=== PATIENT | female | born 1995 | race Caucasian/White ===

== ENCOUNTER 2018-11-07 05:38 | Emergency (ER) | payer SELFPAY ==
[~2018-11-07] VITALS: Ht 160 cm; Wt 57.2 kg
--- NOTE | 2018-11-07 05:51 | PHYS DOC ---
Adult General Chief Complaint Chief Complaint: ANXIETY/PANIC ATTACK HPI HPI Patient is a 23 year old female who presents with acute anxiety/panic attack. Patient's significant other states patient. Be breathing fast, panic, with loud breathing noises and tearfulness morning which caused him to awake. Patient arrives by private vehicle brought immediately to a treatment area. Patient on exam is hyperventilating with clear breath sounds and no restriction of air movement bilaterally. Nose stridor or airway swelling patient placed on monitor and noted to O2 saturation 97% on room air. History is limited as the patient is acutely [] Review of Systems Review of Systems View symptoms as per history of present illness. Limited due to the nature patient's presentation. All other systems were reviewed and found to be within normal limits, except as documented in this note. Current Medications Current Medications Current Medications Medications (Trade) Dose Ordered Sig/Geoffrey Start Time Stop Time Status Last Admin Dose Admin Lorazepam (Ativan) 1 mg 1X ONCE 11/07/18 05:45 11/07/18 05:46 UNV Physical Exam Physical Exam Constitutional: Anxious, tearful, hyperventilating.[] HENT: Normocephalic, atraumatic, bilateral external ears normal, nose normal. [] Eyes: PERRLA, EOMI, conjunctiva normal, no discharge. [] Neck: Normal range of motion, no tenderness, supple, no stridor. [] Cardiovascular:Heart rate regular rhythm, no murmur [] Lungs & Thorax: Tachypnea, Bilateral breath sounds clear to auscultation. [] Abdomen: Bowel sounds normal, soft, no tenderness. [] Skin: Warm, dry. [] Back: No tenderness. [] Extremities: No tenderness, no cyanosis, no clubbing, ROM intact, no edema. [] Neurologic: Alert and oriented X 3, normal motor function, normal sensory function, no focal deficits noted. [] Psychologic: Affect normal, judgement normal, mood normal. [] Current Patient Data Lab Values Laboratory Tests Test 11/07/18 05:42 Glucose (Fingerstick) 90 mg/dL (70-99) EKG EKG [] Radiology/Procedures Radiology/Procedures [] Course & Med Decision Making Course & Med Decision Making Pertinent Labs and Imaging studies reviewed. (See chart for details) [Patient reportedly had similar episode presentation 3 days ago at [facility]. Patient's spouse states multiple tests were done and no diagnosis was made in the patient was discharged home on nausea medication. Denies drugs, alcohol or . Blood sugar 10Ativan given with some improvement. Medical records requested and pending. Care endorsed to oncoming ERP at 06:00.] Que Disclaimer Dragon Disclaimer This electronic medical record was generated, in whole or in part, using a voice recognition dictation system. Departure Departure Impression: Primary Impression: Shortness of breath Additional Impression: Panic attack Problem Qualifiers ORLIN VILLAR DO Nov 07, 2018 05:51
--- NOTE | 2018-11-07 07:37 | EKG ---
[facility] [address] [place] [address] Test Date: 2018-11-07 Test Time: 06:59:50 Pat Name: CHAY PARSONS Department: Room: Gender: F [employer]: : [id number] Requested By: MARGARITA ARAYA Order Number: [id number] Reading MD: Jordy Lawson Measurements Intervals [place] Rate: 65 P: 58 NC: 124 QRS: 62 QRSD: 78 T: 48 QT: 408 QTc: 429 Interpretive Statements SINUS ARRHYTHMIA Electronically Signed On 11-15-2018 13:22:32 TRANSITIONAL STUDIES INSTRUCTOR by Jordy Lawson
[2018-11-07 07:40] VITALS: BP 103/66
[2018-11-07] MEDS ORDERED: BUSP5TAB PO (07:59)
== END 2018-11-07 08:08 | disposition home or self-care (01) ==
LOC: ER 05:38
DX: F41.0 Panic disorder [episodic paroxysmal anxiety] (principal); R06.02 Shortness of breath
CPT/HCPCS: 82962; 93005; 99284; J2060; 99283